=== PATIENT | male | born 1980 | race African-American/Black ===

== ENCOUNTER 2019-09-25 18:08 | Emergency (ER) | payer BC ==
[~2019-09-25] VITALS: Ht 185.4 cm; Wt 72.6 kg
[2019-09-25 18:09] VITALS: BP 150/107
[2019-09-25 18:36] LABS: URINE BILIRUBIN NEGATIVE (Negative); URINE BLOOD NEGATIVE (Negative); URINE CLARITY CLEAR; URINE COLOR YELLOW; URINE GLUCOSE-RANDOM* NEGATIVE (Negative); URINE KETONES NEGATIVE (Negative); URINE LEUKOCYTES-REFLEX NEGATIVE (Negative); URINE NITRITE-REFLEX NEGATIVE (Negative); URINE PROTEIN (DIPSTICK) NEGATIVE (Negative); URINE SPECIFIC GRAVITY >= 1.030 (1.005-1.035); URINE UROBILINOGEN 0.2 E.U./dl (0.2-1.0)
== END 2019-09-25 19:51 | disposition home or self-care (01) ==
LOC: ER 18:08
PROVIDERS: Nurse Practitioner
DX: Z11.3 Encounter for screening for infections with a predominantly sexual mode of transmission (principal); R30.0 Dysuria; F17.210 Nicotine dependence, cigarettes, uncomplicated